=== PATIENT | male | born 1970 | race Caucasian/White ===

== ENCOUNTER 2020-05-26 07:53 | Day surgery (SDC) | payer BC ==
[~2020-05-26 07:53] MED LIST: CEFAZOLIN 2 GM/D5W RTU 2 GM/50 ML RTUPB IV PRN; FENTANYL CITRATE INJ/PF 100 MCG/2 ML AMPUL ONE; KETOROLAC TROMETHAMINE 60 MG/2 ML SDV ONE; LACTATED RINGERS 1000 ML IV PRN; LIDOCAINE 0.5% INJ-PF (5 MG/ML) 50 ML SDV SUBCUT PRN; MIDAZOLAM 2 MG/2 ML INJ ONE; ONDANSETRON HCL INJ/PF 4 MG/2 ML SDV ONE; PROPOFOL INJ 200 MG/20 ML VIAL IV ONE
[2020-05-26] MEDS ORDERED: CEFAZOLIN 2 GM/D5W RTU 2 GM/50 ML RTUPB IV ONE (07:58)
[2020-05-26] MEDS ORDERED: BUPIVACAINE HCL 0.25% /EPINEPHRINE INJ/PF 30 ML SDV ONE (10:01)
[2020-05-26] MEDS ORDERED: BUPIVACAINE INJ/PF LIPOSOME/PF 266 MG/20 ML SDV ONE (10:03)
[2020-05-26] MEDS ORDERED: ONDANSETRON HCL INJ/PF 4 MG/2 ML SDV IV PRN (10:25)
[2020-05-26] MEDS ORDERED: MEPERIDINE HCL/PF INJ 25 MG/1 ML DISP.SYRIN IV PRN (10:25)
[2020-05-26] MEDS ORDERED: PROMETHAZINE HCL INJ 25 MG/1 ML VIAL IV PRN (10:25)
[2020-05-26] MEDS ORDERED: MORPHINE SULFATE 10 MG/ML INJ IV PRN (10:25)
[2020-05-26] MEDS ORDERED: DIPHENHYDRAMINE HCL 50 MG/ML VIAL IV PRN (10:25)
[2020-05-26] MEDS ORDERED: FENTANYL CITRATE INJ/PF 100 MCG/2 ML AMPUL IV PRN ×3 (10:25)
--- NOTE | 2020-05-26 11:25 | Operative Report ---
Nonrecallable Operative Report DATE OF SURGERY: 05/26/20 PREOPERATIVE DIAGNOSIS: Right inguinal hernia POSTOPERATIVE DIAGNOSIS: Bilateral inguinal hernia OPERATION: Laparoscopic bilateral inguinal hernia repair SURGEON: CAMERON VOSS ANESTHESIA: GA TISSUE REMOVED OR ALTERED: None COMPLICATIONS: None ESTIMATED BLOOD LOSS: 0 INTRAOPERATIVE FINDINGS: Left-sided inguinal hernia PROCEDURE: Patient was brought to the operating awake alert stable condition placed on the operating table supine position and induced under general anesthesia and intubated. The abdomen was prepped draped in usual sterile manner for the procedure. After appropriate timeout site verification the procedure commenced. A infraumbilical incision was made with a 15 blade dissection was carried down through subcutaneous tissue with Bovie cautery the rectus fascia was identified was opened transversely and the rectus muscle was retracted laterally. On top of the posterior sheath the spacemaker balloon was placed and manipulated down to the pubic symphysis. It was insufflated under direct vision. It was remov ed. The working balloontipped trocar was then placed into that incision. The 30 degree laparoscope was placed into the retroperitoneum and we turned attention first to the right side where the palpable hernia was identified. The peritoneum was dissected away from the transversalis muscle bluntly and we continued from there inferiorly to identified the Rajat's ligament. Identified the cord structures and mobilized the cord structures as we lifted up on the cord structures we noted peritoneum on the midportion of the cord and was not extending into the groin. We then identified in hasselbachs triangle a defect with a sac within it was reduced. The identified the defect was identified medial to the epigastric vessels. Once this was cleared and the Rjaat's ligament was fully identified as was the rectus fascia we used a piece of polypropylene mesh 3 cm wide by 6 cm long with a slit down the side placed it into the retroperitoneum and fixed it anteriorly to the rectus muscle rubber boots and shoes repairer iorly to Rajat's ligament we wrapped the cord and fixed it laterally to transversalis muscle being careful not to injure the lateral femoral cutaneous nerve. We then turned attention to the left side.. We mobilized the peritoneum away from the transversalis muscle laterally and continue this inferiorly to identify the cord structures the cord structures were mobilized and there was a large lipoma extending down into the groin through the internal ring. It was reduced. There was a sizable defect lateral to the cord structures in the internal ring. There is no evidence of a direct inguinal hernia however. We used a piece of polypropylene mesh similarly to the right side placed into the retroperitoneum fixed it posteriorly to the Rajat's ligament anteriorly to the rectus muscle we wrapped the cord and fixed it laterally to the transversalis muscle this was all done with absorb attacks. Once this was completed we reduce the pneumoperitoneum we remove the ports we closed the fascial defect at the umbilical port site with 0 Vicryl anesthetized all incisions with Exparel. And closed the skin defect with intracuticular 4-0 Biosyn Steri-Strips completed the procedure estimated blood loss was negligible sponge and needle counts correct x2 the patient was awakened in the operating extubated transferred recovery in stable condition no complications.
[2020-05-26] MEDS ORDERED: HYDROCODONE/ACETAMINOPHEN 10-325 MG TABLET PO PRN (11:29)
--- NOTE | 2020-05-26 11:29 | Discharge Summary ---
Discharge Summary (SDC) - Discharge Final Diagnosis: Bilateral inguinal hernia Date of Surgery: 05/26/20 Discharge Date: 05/26/20 Condition: Good Prescriptions: Hydrocodone/Acetaminophen [Zillah 10-325 mg Tablet] 1 tab PO Q6HP PRN #20 tablet PRN Reason: Referrals: TINO WOLFE MD [Primary Care Provider] - Discharge Diet: As Tolerated Discharge Activity: No Lifting Over 10 Pounds, Slowly Increase Activity Report the Following to Your Physician Immediately: Shortness of Breath, Fever over 101 Degrees, Unusual Bleeding - Follow-up with me in surgical clinic in 10 to 14 days
[2020-05-26] MEDS ORDERED: FENTANYL CITRATE INJ/PF 100 MCG/2 ML AMPUL ONE (11:34)
[2020-05-26] MEDS: FENTANYL CITRATE INJ/PF 100 MCG/2 ML AMPUL ONE ×2 (11:42→11:50)
[2020-05-26] MEDS ORDERED: HYDROCODONE/ACETAMINOPHEN 10-325 MG TABLET ONE (12:30)
[2020-05-26] MEDS ORDERED: ROCURONIUM BROMIDE INJ 50 MG/5 ML VIAL IV ONE (13:44)
[2020-05-26] MEDS ORDERED: SUCCINYLCHOLINE CHLORIDE INJ 200 MG/10 ML VIAL ONE (13:44)
[2020-05-26 15:36] VITALS: BP 118/77
== END 2020-05-26 13:52 | disposition home or self-care (01) ==
LOC: OROUT 07:53
PROVIDERS: ATTEND Surgery
DX: K40.90 Unilateral inguinal hernia, without obstruction or gangrene, not specified as recurrent (principal); Z03.818 Encounter for observation for suspected exposure to other biological agents ruled out; E78.00 Pure hypercholesterolemia, unspecified; Z88.0 Allergy status to penicillin; Z79.899 Other long term (current) drug therapy
CPT/HCPCS: 87635; 49650; J2250; J3490; J1885; J3010; J0330; J2405; J2704; J0690; C9290; C9803; C1713; C1758; C1781

== ENCOUNTER → 2020-08-01 | Outpatient (CLI) | payer BC ==
--- NOTE | 2020-08-01 13:42 | RADIOLOGY REPORT (SQ) ---
EXAM DESCRIPTION: MRI LT UPPER JOINT WITHOUT IMAGES COMPLETED DATE/TIME: 08/01/2020 12:38 pm REASON FOR STUDY: M25.512 PAIN IN LEFT SHOULDER M25.512 PAIN IN LEFT SHOULDER COMPARISON: None. TECHNIQUE: Noncontrast non arthrogram MRI left shoulder images acquired and stored on PACS. Multipla gerry imaging to include fat sensitive sequences such as T1, water sensitive sequences such as FST2/STI R, cartilage sensitive sequences such as FSPD/gradient-echo sequences. LIMITATIONS: None. FINDINGS: BONE MARROW AND CORTEX: No marrow signal abnormality worrisome for occult fracture. Subco rtical cyst formation and bony spurring along the greater tuberosity and bicipital groove left chrissy l head JOINT OR BURSAL EFFUSION: Joint effusion with fluid in the subacromial/subdeltoid bursa and subcoraco id recess GLENO-HUMERAL ARTICULATION: Normal articulation. No subluxation. No cystic change. No osteophytes or cartilage loss. ACROMION AND AC JOINT: Type 2 acromion with moderate AC joint hypertrophy narrowing the subacromial space on coronal image 10 and sagittal image 15 ROTATOR CUFF AND INTERVAL: There is thinning of the distal supraspinatus tendon with a small full-thi ckness tear on sagittal image 15 and coronal image 10. No supraspinatus muscle atrophy. The infraspinatus tendon is thin without tear. No muscle atrophy. Subscapularis tendon is diffusely thickened and high in signal from tendinopathy. No rotator interval tear. No rotator interval thickening to suggest adhesive capsulitis. LABRUM AND BICEPS LABRAL COMPLEX: Intra-articular long head biceps tendon is high in signal from te ndinopathy. Indistinct superior labrum from tear. No paralabral cyst. REMAINDER OF LABRUM AND IGHL : No gross tear or paralabral cyst formation. Labral evaluation is less than optimal without joint distention. No thickening of IGHL to suggest adhesive capsulitis. PERIARTICULAR AND ADJACENT SOFT TISSUES: No masses or abnormal nodes. OTHER: No other significant finding. IMPRESSION: Full-thickness distal supraspinatus tear High-grade tendinopathy subscapularis and intra-articular long head biceps tendon. Suspect a superior labral tear TECHNICAL DOCUMENTATION: JOB ID: [id number] 2010 [email or web address]- All Rights Reserved Reading location - IP/workstation name: [email or web address]
== END ==
LOC: RAD 11:47
PROVIDERS: ATTEND Orthopaedic Surgery Sports Medicine
DX: M75.122 Complete rotator cuff tear or rupture of left shoulder, not specified as traumatic (principal); M25.512 Pain in left shoulder